=== PATIENT | female | born 1990 | race Caucasian/White ===

== ENCOUNTER 2019-04-25 18:48 | Observation (INO) ==
[2019-04-25] MEDS ORDERED: Betamethasone Acet/SodPhos 30 MG/5 ML VIAL IM SCH (19:00)
[2019-04-25 19:43] LABS: Bilirubin,Urine Negative (Negative); Blood,Urine Negative (Negative); Clarity,Urine Clear (Clear); Color,Urine Yellow (Yellow); Glucose,Urine (UA) Normal (Normal); Ketones,Urine Trace mg/dL (Negative); Leukocyte Esterase,Urine Moderate (Negative); Nitrite,Urine Negative (Negative); Protein,Urine Negative (Neg-Trace); Specific Gravity,Urine 1.019 (1.010-1.025); Urobilinogen,Urine Normal (Normal)
[2019-04-25 19:51] LABS: Amphetamine Screen,Urine Negative ng/mL (Cutoff=1000); Barbiturate Screen,Urine Negative ng/mL (Cutoff=200); Benzodiazepines Screen,Urine Negative ng/mL (Cutoff=200); Cannabinoid Screen,Urine Negative ng/mL (Cutoff = 50); Cocaine Screen,Urine Negative ng/mL (Cutoff= 300); Opiate Screen,Urine Negative ng/mL (Cutoff=300); Phencyclidine Screen,Urine Negative ng/mL (Cutoff=25)
[2019-04-25 20:05] LABS: Calcium Oxalate Crystals,Urine Present; Squamous Epithelial Cell,Urine Many per lpf (None-Few)
[2019-04-25 20:06] LABS: Bacteria,Urine Few per hpf (None-Few)
--- NOTE | 2019-04-25 21:14 | Discharge Summary ---
Date of Encounter: 04/25/19 Time of Encounter: 21:14 - Discharge Diagnosis (1) 35 weeks gestation of Priority: Primary Status: Acute Comments: Follow up with Dr. Nava Discharge home (2) Uterine contractions Priority: Secondary Status: Acute Comments: Monitored for 2 hours with no cervical change - Discharge Medications Prescriptions: No Action Vit/FA 1 tab PO DAILY Ferrous Sulfate 325 mg PO BID #60 tablet Ibuprofen [Motrin] 600 mg PO TID PRN #60 tablet PRN Reason: Cramping Vit/FA 1 each PO DAILY #30 tablet Labetalol [Trandate] 100 mg PO BID #60 tablet Ibuprofen [Motrin] 600 mg PO Q6HR PRN #60 tablet PRN Reason: Pain Labetalol [Trandate] 100 mg PO BID #60 tablet Home Medications: Vit/FA 1 tab PO DAILY 04/28/15 [History] Ferrous Sulfate 325 mg PO BID #60 tablet 05/20/15 [Rx] Ibuprofen [Motrin] 600 mg PO Q6HR PRN #60 tablet 05/20/15 [Rx] Ibuprofen [Motrin] 600 mg PO TID PRN #60 tablet 05/20/15 [Rx] Labetalol [Trandate] 100 mg PO BID #60 tablet 05/20/15 [Rx] Labetalol [Trandate] 100 mg PO BID #60 tablet 05/20/15 [Rx] Vit/FA 1 each PO DAILY #30 tablet 05/20/15 [Rx] Allergies/Adverse Reactions: Allergy/AdvReac Type Severity Reaction Status Date / Time Sulfa (Sulfonamide Allergy Swelling Verified 05/17/15 11:50 Antibiotics) of the Eye Data Procedures and tests throughout hospitalization: Laboratory Tests 04/25/19 04/25/19 19:10 19:10 Urine Color Yellow Urine Clarity Clear Urine pH 7.0 Ur Specific [place] 1.019 Urine Protein Negative Urine Glucose (UA) Normal Urine Ketones Trace H Urine Blood Negative Urine Nitrite Negative Urine Bilirubin Negative Urine Urobilinogen Normal Ur Leukocyte Esterase Moderate H Urine Opiates Screen Negative Ur Buprenorphine Scrn Negative Ur Barbiturates Screen Negative Ur Phencyclidine Scrn Negative Ur Amphetamines Screen Negative U Benzodiazepines Scrn Negative Urine Cocaine Screen Negative U Marijuana (THC) Screen Negative Ur Drug Screen Interp See Below Labs on day of discharge: Labs from last 24 hours 04/25/19 04/25/19 19:10 19:10 Urine Color Yellow Urine Clarity Clear Urine pH 7.0 Ur Specific [place] 1.019 Urine Protein Negative Urine Glucose (UA) Normal Urine Ketones Trace H Urine Blood Negative Urine Nitrite Negative Urine Bilirubin Negative Urine Urobilinogen Normal Ur Leukocyte Esterase Moderate H Urine Opiates Screen Negative Ur Buprenorphine Scrn Negative Ur Barbiturates Screen Negative Ur Phencyclidine Scrn Negative Ur Amphetamines Screen Negative U Benzodiazepines Scrn Negative Urine Cocaine Screen Negative U Marijuana (THC) Screen Negative Ur Drug Screen Interp See Below Date of admission: 04/25/19 18:48 Discharging clinician: Ara Gonzalez Anticipated date of discharge: 04/25/19 - Patient Status Disposition: Home, Self-Care Condition: Good Functional capacity at discharge: independent ambulation Overall status at discharge: patient is progressing back to baseline - Discharge Instructions Follow Up With: Monica Nava MD [Partnered Physician] - - Diet and Activity Activity: increase activity as tolerated Diet: regular diet Hospital Course [employer] Reason for admission: other Discharge diagnosis: other Hospital course: Ms. Helms presented for ptl evaluation. She was monitored for 2 hours with no cervical change. Discharge home Time Attestation: Total time spent providing and/or coordinating discharge services: Time Spent: Less than 30 minutes Exam - Constitutional General appearance IM: A&O X 3, pleasant, no acute distress, answers questions appropriately - Respiratory Respiratory exam: Present: CTAB - Cardiovascular Cardiovascular exam IM: Present: RRR, +S1, +S2 - GI/Abdominal GI/Abdominal exam IM: normal bowel sounds, no peritoneal signs - Rectal Rectal exam: deferred - Uterine Tone: Firm - Extremities Exam Extremities exam IM: Present: full ROM, normal inspection, radial pulses palpable and symmetrical - Neurological Exam Neurological exam: alert, CN II-XII intact, normal gait, oriented X3, reflexes normal, strengths equal and symetr throughout - VTE Reasons for not Prescribing Prophylaxis: Treatment not Indicated - Low risk for VTE
== END 2019-04-25 21:28 | disposition home or self-care (01) ==
LOC: 1NENULAB
PROVIDERS: ADMIT Student in an Organized Health Care Education/Training Program; ATTEND Student in an Organized Health Care Education/Training Program

== ENCOUNTER 2019-05-21 12:11 | Observation (INO) ==
[2019-05-21 13:09] LABS: Basophils % 0.2 %; Eosinophils # 0.1 K/mcL (0.0-0.6); Eosinophils % 1.3 %; Hematocrit 38.9 % (35.3-44.9); Hemoglobin 12.9 g/dL (11.5-15.4); Immature Granulocytes % 0.9 % (0-4); Lymphocytes # 1.2 K/mcL (0.6-4.6); Lymphocytes % 10.9 %; Mean Corpuscular HGB Conc 33.2 g/dL (31.6-35.5); Mean Corpuscular Hemoglobin 26.6 pg (28.0-33.3); Mean Corpuscular Volume 80.2 fL (83.0-100.0); Monocytes # 0.4 K/mcL (0.0-1.3); Monocytes % 3.8 %; Neutrophils # 9.3 K/mcL (1.6-8.9); Platelet Count 251 K/mcL (140-400); Red Blood Count 4.85 M/mcL (3.82-4.97); Red Cell Distribution Width 14.7 % (11.5-14.5); Segmented Neutrophils % 82.9 %; White Blood Count 11.2 K/mcL (4.3-11.1)
[2019-05-21 13:19] LABS: Protein/Creatinine Ratio,Urine 0.22 mg/mg (0.00-0.20)
[2019-05-21 13:35] LABS: Alanine Aminotransferase 7 Units/L (7-52); Aspartate Amino Transferase 18 Units/L (13-39); BUN/Creatinine Ratio 12 (6-26); Blood Urea Nitrogen 6 mg/dL (6-20); Lactate Dehydrogenase 145 Units/L (140-271); Uric Acid 5.5 mg/dL (2.3-7.6); eGFR For African Americans > 60 (> 60); eGFR For Non-African Americans > 60 (> 60)
== END 2019-05-21 15:30 | disposition home or self-care (01) ==
LOC: 1NENULAB
PROVIDERS: ADMIT Registered Nurse; ATTEND Registered Nurse

== ENCOUNTER 2019-05-23 17:47 | Inpatient (IN) ==
[2019-05-23] MEDS ORDERED: CeFAZolin Syr 3,000MG/30 ML 3,000 MG/30 ML SYRINGE IVPB ONE (17:54)
[2019-05-23] MEDS ORDERED: Metoclopramide 10 MG/2 ML VIAL IVP ONE (17:54)
[2019-05-23] MEDS ORDERED: Ringers Solution, Lactated 1,000 ML IVC ONE (17:54)
[2019-05-23] MEDS ORDERED: Oxytocin 20 units/ LR 1000 mL 20 UNIT/1,000 ML BAG IVC ONE (17:54)
[2019-05-23] MEDS ORDERED: Famotidine 20 MG/2 ML VIAL IVP ONE (17:54)
[2019-05-23] MEDS ORDERED: Ringers Solution, Lactated 1,000 ML IVC SCH ×2 (18:00→23:58)
[2019-05-23] MEDS ORDERED: Oxytocin 20 units/ LR 1000 mL 20 UNIT/1,000 ML BAG IVC SCH ×3 (18:00→23:58)
[2019-05-23] MEDS ORDERED: Ringers Solution, Lactated 1,000 ML ONE (18:05)
[2019-05-23] MEDS ORDERED: Ondansetron 4 MG/2 ML VIAL IVP PRN ×2 (18:34→23:58)
[2019-05-23] MEDS ORDERED: Ibuprofen 400 MG TABLET PO PRN (18:34)
[2019-05-23] MEDS ORDERED: *HR* OxyCODONE/APAP 5/325 TABLET PO PRN ×2 (18:34→23:58)
[2019-05-23] MEDS ORDERED: Acetaminophen IV 1,000 MG/100 ML INFUS..BTL IVPB ONE (18:35)
[2019-05-23 18:45] LABS: Amphetamine Screen,Urine Negative ng/mL (Cutoff=1000); Barbiturate Screen,Urine Negative ng/mL (Cutoff=200); Benzodiazepines Screen,Urine Negative ng/mL (Cutoff=200); Cannabinoid Screen,Urine Negative ng/mL (Cutoff = 50); Cocaine Screen,Urine Negative ng/mL (Cutoff= 300); Creatinine,Urine 177 mg/dL; Opiate Screen,Urine Negative ng/mL (Cutoff=300); Phencyclidine Screen,Urine Negative ng/mL (Cutoff=25); Protein/Creatinine Ratio,Urine 0.28 mg/mg (0.00-0.20)
[2019-05-23 18:52] LABS: Basophils % 0.2 %; Eosinophils # 0.2 K/mcL (0.0-0.6); Eosinophils % 1.4 %; Hematocrit 39.1 % (35.3-44.9); Hemoglobin 12.8 g/dL (11.5-15.4); Immature Granulocytes % 0.8 % (0-4); Lymphocytes # 1.1 K/mcL (0.6-4.6); Lymphocytes % 10.8 %; Mean Corpuscular HGB Conc 32.7 g/dL (31.6-35.5); Mean Corpuscular Hemoglobin 26.4 pg (28.0-33.3); Mean Corpuscular Volume 80.8 fL (83.0-100.0); Mean Platelet Volume 11.6 fL (9.4-12.4); Monocytes # 0.4 K/mcL (0.0-1.3); Monocytes % 3.9 %; Neutrophils # 8.7 K/mcL (1.6-8.9); Platelet Count 269 K/mcL (140-400); Red Blood Count 4.84 M/mcL (3.82-4.97); Red Cell Distribution Width 14.8 % (11.5-14.5); Segmented Neutrophils % 82.9 %; White Blood Count 10.5 K/mcL (4.3-11.1)
[2019-05-23 18:58] LABS: Alanine Aminotransferase 8 Units/L (7-52); Aspartate Amino Transferase 19 Units/L (13-39); BUN/Creatinine Ratio 10 (6-26); Blood Urea Nitrogen 5 mg/dL (6-20); Lactate Dehydrogenase 160 Units/L (140-271); Uric Acid 5.1 mg/dL (2.3-7.6); eGFR For African Americans > 60 (> 60); eGFR For Non-African Americans > 60 (> 60)
[2019-05-23] MEDS ORDERED: Metoclopramide 10 MG/2 ML VIAL IVP PRN (23:58)
[2019-05-23] MEDS ORDERED: Simethicone 80 MG TAB.CHEW PO PRN (23:58)
[2019-05-23] MEDS ORDERED: Sennosides 8.6 MG TABLET PO PRN (23:58)
[2019-05-23] MEDS ORDERED: Rho Immune Globulin 1,500 UNIT SYRINGE IM ONE (23:58)
[2019-05-24] MEDS: Ibuprofen 600 MG TABLET PO PRN ×2 (05:28→20:18)
[2019-05-24 07:13] LABS: Basophils % 0.2 %; Eosinophils # 0.1 K/mcL (0.0-0.6); Eosinophils % 0.7 %; Hematocrit 32.9 % (35.3-44.9); Immature Granulocytes % 0.6 % (0-4); Lymphocytes # 0.9 K/mcL (0.6-4.6); Mean Corpuscular HGB Conc 31.9 g/dL (31.6-35.5); Mean Corpuscular Hemoglobin 26.4 pg (28.0-33.3); Mean Corpuscular Volume 82.7 fL (83.0-100.0); Mean Platelet Volume 11.1 fL (9.4-12.4); Monocytes # 0.5 K/mcL (0.0-1.3); Neutrophils # 10.8 K/mcL (1.6-8.9); Platelet Count 209 K/mcL (140-400); Red Blood Count 3.98 M/mcL (3.82-4.97); Red Cell Distribution Width 14.8 % (11.5-14.5); Segmented Neutrophils % 87.5 %; White Blood Count 12.3 K/mcL (4.3-11.1)
[2019-05-24 07:17] LABS: Hemoglobin 10.5 g/dL (11.5-15.4)
[2019-05-24] MEDS ORDERED: Prenatal Vit/FA 1 EACH TABLET PO SCH (09:00)
[2019-05-25] MEDS: Ibuprofen 600 MG TABLET PO PRN ×2 (02:15→08:45)
[2019-05-25 09:52] VITALS: BP 140/90
== END 2019-05-25 11:57 | disposition home or self-care (01) | DRG 540 ==
LOC: 1NENULAB 17:47 → 1NENUOBS 23:57
PROVIDERS: ADMIT Student in an Organized Health Care Education/Training Program; ATTEND Student in an Organized Health Care Education/Training Program